=== PATIENT | female | born 1985 | race Caucasian/White ===

== ENCOUNTER → 2022-06-06 | Day surgery (SDC) | payer OTHER | END | disposition home or self-care (01) | LOC: FMAMMOTONE 08:17 | PROVIDERS: ATTEND Surgery | PROC: 0H9U3ZX Drainage of Left Breast, Percutaneous Approach, Diagnostic (ICD-10-PCS; principal; 2022-06-06) | DX: N60.32 Fibrosclerosis of left breast (principal); N60.82 Other benign mammary dysplasias of left breast; N64.89 Other specified disorders of breast; R92.0 Mammographic microcalcification found on diagnostic imaging of breast | CPT/HCPCS: 19081; 76098-TC-FY; 87899; 88305-TC; A4648 ==